=== PATIENT | male | born 1970 | race Caucasian/White ===

== ENCOUNTER 2018-01-20 14:59 | Observation (INO) | payer OTHER ==
[2018-01-20] MEDS ORDERED: metroNIDAZOLE-NS PMX 500 MG in SALINE 1 100ML.BAG IVPB STA (15:05)
--- NOTE | 2018-01-20 15:08 | ED ---
Abdominal Pain HPI - General Stated Complaint: Abd Pain Time Seen by Provider: 01/20/18 15:02 Source: patient, RN notes reviewed Mode of arrival: ambulatory Limitations: no limitations - History of Present Illness Initial Comments: This a 47-year-old male presents emergency from it from [place] as a transfer for acute appendicitis. Patient states pain started yesterday worsened today. Patient was seen today and had a CAT scan consistent with appendicitis. Patient was given Rocephin. Patient's lab work, MG was reviewed. Patient was evaluated by Dr. avina in emergency department. - Related Data Allergies Allergy/AdvReac Type Severity Reaction Status Date / Time No Known Allergies Allergy Verified 01/20/18 15:02 Review of Systems ROS Statement: Those systems with pertinent positive or pertinent negative responses have been documented in the HPI. ROS Other: All systems not noted in ROS Statement are negative. General Exam General appearance: alert, in no apparent distress Respiratory exam: Present: normal lung sounds bilaterally. Absent: respiratory distress, wheezes, rales, rhonchi, stridor Cardiovascular Exam: Present: regular rate, normal rhythm, normal heart sounds. Absent: systolic murmur, diastolic murmur, rubs, gallop, clicks GI/Abdominal exam: Present: soft, tenderness, normal bowel sounds. Absent: distended, guarding, rebound, rigid Back exam: Absent: CVA tenderness (R), CVA tenderness (L) Medical Decision Making - Medical Decision Making 47-year-old male presented with department for abdominal pain, appendicitis. Patient was transferred here from [facility]. Patient will be admitted to Dr. avina. Patient was given Rocephin at [facility] will be given Flagyl in addition here. Patient will be admitted for surgery. Disposition Clinical Impression: Acute appendicitis Disposition: ADMITTED IP TO THIS HOSP Condition: Stable Referrals: Ayan Iqbal MD [Primary Care Provider] - 1-2 days Time of Disposition: 15:07
[2018-01-20] MEDS: SODIUM CHLORIDE 0.9% 1,000 ML IV SCH (15:28)
--- NOTE | 2018-01-20 15:36 | P.GSHP ---
History of Present Illness H&P Date: 01/20/18 This is a 47-year-old male who presented to the emergency room after being transferred from [facility] with acute appendicitis. He states he had been having pain since last night which is generalized abdominal pain however this morning he woke up and had pain in his right lower quadrant. He has had loss of appetite and hasn't eaten since dinner last night. He denies any nausea vomiting denies any fevers or chills he's never had pain like this before in the past. Nothing makes it better movement makes it worse. He has no past surgical history his past medical history is hypertension and hypercholesterolemia. Past Medical History Past Medical History: Hyperlipidemia, Hypertension Additional Past Medical History / Comment(s): gout History of Any Multi-Drug Resistant Organisms: None Reported Past Surgical History: No Surgical Hx Reported Past Psychological History: No Psychological Hx Reported Smoking Status: Never smoker Past Alcohol Use History: None Reported Past Drug Use History: None Reported Medications and Allergies Home Medications Medication Instructions Recorded Confirmed Type Losartan Potassium 50 mg PO DAILY 01/20/18 01/20/18 History Allergies Allergy/AdvReac Type Severity Reaction Status Date / Time No Known Allergies Allergy Verified 01/20/18 15:22 Surgical - Exam Osteopathic Statement: *. No significant issues noted on an osteopathic structural exam other than those noted in the History and Physical/Consult. Vital Signs Temp Pulse Resp BP Pulse Ox 99.4 F 81 18 131/71 94 L 01/20/18 15:02 01/20/18 15:02 01/20/18 15:02 01/20/18 15:02 01/20/18 15:02 - General well developed, well nourished, no distress - Eyes PERRL - ENT normal mucosa - Neck no masses, trachea midline - Respiratory normal expansion, normal respiratory effort - Cardiovascular Rhythm: regular - Abdomen Soft nondistended tender to palpation in the right lower quadrant no rebound rigidity or guarding - Neurologic normal coordination, normal sensation - Musculoskeletal normal gait - Psychiatric oriented to time, oriented to person, oriented to place Results Patient had elevated white count on his outside labs. These were sent with him white count was 14 - Imaging CT scan - abdomen: report reviewed, image reviewed CT scan - pelvis: report reviewed, image reviewed (CT abdomen and pelvis was consistent with acute appendicitis. He also had lung nodules which were seen was discussed with the patient to follow-up with his primary care physician regarding these nodules. He stated he understood and agreed and would follow up with his primary care) Assessment and Plan Assessment: Acute appendicitis Plan: Patient received Rocephin prior to transfer. Will add IV Flagyl. Nothing by mouth. Plan for laparoscopic appendectomy possible open. This was discussed with the patient and his family risks benefits and alternatives including risks of bleeding infection damage to surrounding tissue need for further operation and conversion to open were all discussed the patient he stated he understood agreed and consented.
[2018-01-20] MEDS ORDERED: IV FLUID CONTINUATION 500 ML IV ONE (16:02)
[2018-01-20] MEDS ORDERED: HEPARIN SODIUM,PORCINE 5,000 UNIT/ML 1 ML VIAL SQ ONE (16:26)
[2018-01-20] MEDS ORDERED: DEXAMETHASONE SOD PHOS (MDV) 100 MG/10 ML VIAL ONE (16:30)
[2018-01-20] MEDS ORDERED: KETOROLAC 30 MG/ML 1 ML VIAL ONE (16:30)
[2018-01-20] MEDS ORDERED: PHENYLEPHRINE-0.9% NACL SYG 1 MG/10 ML SYRINGE ONE (16:30)
[2018-01-20] MEDS ORDERED: fentaNYL (PF) 50 MCG/ML 2 ML AMP ONE (16:30)
[2018-01-20] MEDS ORDERED: PROPOFOL 10 MG/ML 20 ML VIAL IV ONE (16:30)
[2018-01-20] MEDS ORDERED: NEOSTIGMINE 1 MG/ML 10 ML VIAL ONE (16:30)
[2018-01-20] MEDS ORDERED: GLYCOPYRROLATE 0.2 MG/ML 2 ML VIAL ONE (16:30)
[2018-01-20] MEDS ORDERED: ROCURONIUM BROMIDE 10 MG/ML 10 ML VIAL IV ONE (16:30)
[2018-01-20] MEDS ORDERED: ONDANSETRON 4 MG/2 ML VIAL ONE (16:30)
[2018-01-20] MEDS ORDERED: SUCCINYLCHOLINE CHLORIDE 100 MG/5 ML SYR IV ONE (16:30)
[2018-01-20] MEDS ORDERED: LIDOCAINE 1% INJ 10MG/ML (20 ML MDV) ONE (16:30)
[2018-01-20] MEDS ORDERED: MIDAZOLAM 2 MG/2 ML VIAL ONE (16:30)
[2018-01-20] MEDS ORDERED: BUPIVACAINE (PF) 0.25% 30 ML VIAL SQ ONE ×2 (17:04)
[2018-01-20] MEDS ORDERED: MORPHINE SULFATE 4MG/4ML SYRG IVP PRN (17:31)
[2018-01-20] MEDS ORDERED: NALOXONE 0.4 MG/ML 1 ML VIAL IV PRN (17:31)
[2018-01-20] MEDS ORDERED: LACTATED RINGERS 1,000 ML IV ONE (17:31)
--- NOTE | 2018-01-20 17:45 | P.OP ---
Date of Procedure: 01/20/18 Preoperative Diagnosis: Acute appendicitis Postoperative Diagnosis: same Procedure(s) Performed: Laparoscopic appendectomy Anesthesia: YANELIS Surgeon: Tani Dillon Condition: stable Disposition: PACU Indications for Procedure: This is a 47-year-old male who presented from an outside hospital with acute appendicitis. His clinical picture and CT scans consistent with acute appendicitis. He described the risks benefits and alternatives to laparoscopic appendectomy appendectomy including risks of bleeding infection damage surrounding tissue need further operation and converted open he stated he understood agreed and consented informed consent was obtained Operative Findings: Acute appendicitis Description of Procedure: Patient was brought operative suite remained in the supine position was prepped and draped in the usual sterile fashion timeout was performed correct patient correct procedure correct site was verified. A 2 cm incision was made in the left lower quadrant and using a 12 mm Visiport the abdomen was entered under direct visualization. The abdomen was insufflated no injuries were noted a 5 mm port was placed supraumbilical and a 5 mm port was placed under direct visualization suprapubic. The appendix was then identified the patient had been placed in Trendelenburg right side up. The appendix was dissected to the base of the cecum and a LigaSure device was used to take down the mesoappendix. A 45 mm purple load Endo JEFFY stapler was used to staple across the of appendix at the base of the cecum. The appendix was then placed in an Endo Catch bag and removed through the 12 mm port site. The staple line was inspected and hemostasis was noted the 12 mm port site was then closed with an 0 Vicryl in a [id number] fashion with 8 of a Fredy-Parvin suture passer. All ports removed under direct visualization and hemostasis was noted the abdomen was desufflated the skin was closed with 4-0 subcuticular Monocryl suture. Skin glue was applied patient tolerated procedure well no apparent complications
[2018-01-20] MEDS ORDERED: fentaNYL (PF) 50 MCG/ML 2 ML AMP IVP ONE (18:17)
[2018-01-20] MEDS: HYDROcodone/APAP 5-325MG 1 EACH TAB PO PRN (20:04)
[2018-01-20] MEDS: HEPARIN SODIUM,PORCINE 5,000 UNIT/ML 1 ML VIAL SQ SCH (23:20)
[2018-01-21] MEDS: SODIUM CHLORIDE 0.9% 1,000 ML IV SCH ×3 (03:39→14:15)
[2018-01-21] MEDS: HYDROcodone/APAP 5-325MG 1 EACH TAB PO PRN ×3 (04:05→14:26)
[2018-01-21 07:13] LABS: Basophils % (A) 0 %; Eosinophils % (A) 0 %; HCT 38.7 % (39.0-53.0); HGB 13.3 gm/dL (13.0-17.5); Lymphocytes # (A) 1.2 k/uL (1.0-4.8); Lymphocytes % (A) 9 %; MCHC 34.4 g/dL (31.0-37.0); MCV 87.3 fL (80.0-100.0); Mean Platelet Volume 6.6; Monocytes # (A) 0.6 k/uL (0-1.0); Monocytes % (A) 4 %; Neutrophils # (A) 11.2 k/uL (1.3-7.7); Neutrophils % (A) 85 %; Platelet Count 222 k/uL (150-450); RBC 4.44 m/uL (4.30-5.90); RDW 13.6 % (11.5-15.5); WBC 13.1 k/uL (3.8-10.6)
[2018-01-21 07:28] LABS: Anion Gap 12 mmol/L; Blood Urea Nitrogen 18 mg/dL (9-20); Calcium 8.7 mg/dL (8.4-10.2); Carbon Dioxide 25 mmol/L (22-30); Chloride 103 mmol/L (98-107); Glucose 118 mg/dL (74-99); Potassium 4.6 mmol/L (3.5-5.1); Sodium 140 mmol/L (137-145)
[2018-01-21] MEDS: HEPARIN SODIUM,PORCINE 5,000 UNIT/ML 1 ML VIAL SQ SCH (07:58)
[2018-01-21 08:47] VITALS: RESP 18
[2018-01-21] MEDS ORDERED: LOSARTAN 50 MG TAB PO SCH (09:00)
[2018-01-21 14:14] VITALS: BP 133/85; PULSE 75; TEMP 98.2
--- NOTE | 2018-01-21 14:27 | P.DS ---
Providers Date of admission: 01/20/18 15:08 Attending physician: Tani Dillon DO Primary care physician: Ayan Iqbal Hospital Course: Is a 47-year-old gentleman who was transferred from [place] on 01/20/2018 for evaluation for appendicitis. He had CT and clinical findings consistent with acute appendicitis is taken to the operating room on 01/20/2018 for a laparoscopic appendectomy this was performed without complication. Overnight patient did well he states that today his pain is feeling much better. He is tolerating a diet. Afebrile. Clinically improved. He was stable for discharge on 01/21/2018 with instructions to follow-up with his primary care physician in [place]. I informed him that should he have pain is getting worse instead of better fevers or chills or any other concerns to call my office or report to the emergency room. I informed the patient not to lift anything over 15 pounds for 3-4 weeks. He stated he understood agreed is discharged home in stable condition on 01/21/2018 Patient Condition at Discharge: Stable Plan - Discharge Summary Discharge Rx Participant: No New Discharge Prescriptions: No Action Losartan Potassium 50 mg PO DAILY Discharge Medication List Losartan Potassium 50 mg PO DAILY 01/20/18 [History] Follow up Appointment(s)/Referral(s): Ayan Iqbal MD [Primary Care Provider] - 1-2 days Tani Dillon DO [Doctor of Osteopathic Medicine] - 1 Week Activity/Diet/Wound Care/Special Instructions: Patient may shower and pat dry do not submerge for 3 weeks
[2018-01-21] MEDS ORDERED: HYDROmorphone 2 MG TAB PO PRN (14:52)
== END 2018-01-21 15:00 | disposition home or self-care (01) ==
LOC: EC 14:59 → 5MS5E 15:08 → INTOOBSV 15:08 → UNDODISOB 01-21 15:00
PROVIDERS: ADMIT Student in an Organized Health Care Education/Training Program; ATTEND Student in an Organized Health Care Education/Training Program
DX: K35.80 Unspecified acute appendicitis (principal); E78.5 Hyperlipidemia, unspecified; I10 Essential (primary) hypertension; M10.9 Gout, unspecified; G47.33 Obstructive sleep apnea (adult) (pediatric); Z99.89 Dependence on other enabling machines and devices; Z79.899 Other long term (current) drug therapy; Z98.890 Other specified postprocedural states
CPT/HCPCS: 44970; 96365; 99284; 94660 ×2; 88304; 80048; 85025; G0378 ×2; J2250; J1644 ×2; J2710; J2405; J2001; J3010; J1885; J1100; J2370; J0330; J2704

== ENCOUNTER → 2018-02-04 | Outpatient (CLI) | payer OTHER ==
--- NOTE | 2018-02-04 13:48 | PE ---
EXAMINATION TYPE: PET CT fusion skull to thigh DATE OF EXAM: 02/04/2018 COMPARISON: Outside CT abdomen and pelvis study January 20, 2018. HISTORY: Pulmonary nodules with adjacent adenopathy per order. TECHNIQUE: Following the intravenous administration of 14.23 mCi of F-18 FDG, whole body images are performed from the skull base to the midthigh. Images are reviewed on the computer in the coronal, a xial, and sagittal planes. Reconstructed rotating images are created on independent workstation and reviewed on the computer. A noncontrast CT is performed in conjunction with the PET scan. SCAN: Initial Scan FINDINGS: SKULL BASE AND NECK: No suspicious hypermetabolic uptake is present. CHEST, MEDIASTINUM, AND HILAR REGION: There is 5 x 4 mm nodule near level of lingula axial image 98 w ithout hypermetabolic uptake. There is 8 x 5 mm left lower lobe nodule posteriorly axial image 107 wi thout hypermetabolic uptake. There is 2 mm nodule left upper lobe axial image 73. There are enlarged hypermetabolic left hilar lymph nodes. For reference max SUV is 3.29 on axial imag e 95, size of lymph node is roughly 1.8 x 1.1 cm but difficult to accurately measure on noncontrast C T with adjacent pulmonary arterial branch. There are prominent but subcentimeter ametabolic additiona l scattered thoracic lymph nodes. ABDOMEN AND PELVIS: There is asymmetric hypermetabolic uptake right lateral wall of rectum axial imag e 245 slightly more eccentric thickening seen on comparison outside CT, max SUV is 5.07. Neoplasm at this level cannot be excluded. Further investigation with direct visualization or colonoscopy advised . OSSEOUS STRUCTURES: No suspicious hypermetabolic uptake is seen. OTHER CT: Coronary artery calcification is present which is noted marker for coronary artery disease. Mild cardiomegaly is noted. Small degree of bilateral gynecomastia is noted. Liver is diffusely low dense consistent with fatty infiltration. There is 4 mm calculus in left kidney mid pole level axial image 169 redemonstrated. Central zone calcifications are seen in prostate gland upper limits of normal in size. There is moderate to large sized fat-containing right inguinal hernia. There is linear scarring left anterior abdominal wall axial image 209 likely from prior laparoscopic surgery. IMPRESSION: Scattered left-sided lung nodules do not show suspicious hypermetabolic uptake. There is mild abnormal hypermetabolic uptake in left hilar lymph nodes. Consider bronchoscopy to further evalu ate. More suspicious uptake noted right wall of rectum. Follow-up colonoscopy advised.
== END ==
LOC: RADPETMAIN 07:12
PROVIDERS: ATTEND Family Medicine
DX: R59.1 Generalized enlarged lymph nodes (principal); R91.1 Solitary pulmonary nodule
CPT/HCPCS: 78815; A9552

== ENCOUNTER 2018-02-13 11:46 | Day surgery (SDC) | payer OTHER ==
[2018-02-10 11:46] VITALS: BMI 30.5
[2018-02-13] MEDS ORDERED: LIDOCAINE 1% 20 ML VIAL (10MG/ML) FOR IV START INTRADERMA ONE (12:21)
[2018-02-13 12:32] VITALS: RESP 16; TEMP 97.9
[2018-02-13] MEDS ORDERED: LACTATED RINGERS 1,000 ML IV ONE (12:36)
[2018-02-13] MEDS ORDERED: LIDOCAINE 1% INJ 10MG/ML (20 ML MDV) ONE (13:58)
[2018-02-13] MEDS ORDERED: PROPOFOL 10 MG/ML 20 ML VIAL IV ONE (13:58)
--- NOTE | 2018-02-13 14:16 | P.GSHP ---
History of Present Illness H&P Date: 02/13/18 Chief Complaint: Screening colonoscopy This a 48-year-old male referred from Dr. Regan. Patient rents today for screening colonoscopy. He denies a significant GI complaints. Past Medical History Past Medical History: Cancer, Deep Vein Thrombosis (DVT), GERD/Reflux, Hyperlipidemia, Hypertension, Sleep Apnea/CPAP/BIPAP Additional Past Medical History / Comment(s): gout,basal cell skin CA to forhead , kidney stones, C PAP -" DVT -IN LEG AFTER CHAIN SAW INJURY TO LEG" History of Any Multi-Drug Resistant Organisms: None Reported Past Surgical History: Appendectomy Additional Past Surgical History / Comment(s): nasal surgery, skin cancer surgery Past Anesthesia/Blood Transfusion Reactions: No Reported Reaction Smoking Status: Former smoker - Past Family History Brother(s) Family Medical History: Hyperlipidemia Mother Family Medical History: No Reported History Medications and Allergies Home Medications Medication Instructions Recorded Confirmed Type Losartan Potassium 50 mg PO DAILY 01/20/18 02/13/18 History Allergies Allergy/AdvReac Type Severity Reaction Status Date / Time No Known Allergies Allergy Verified 02/10/18 11:29 Surgical - Exam Vital Signs Temp Pulse Resp BP Pulse Ox 97.9 F 73 16 117/71 98 02/13/18 12:27 02/13/18 12:27 02/13/18 12:27 02/13/18 12:27 02/13/18 12:27 - General well developed, no distress - Eyes PERRL - ENT normal pinna - Neck no masses - Respiratory normal expansion - Cardiovascular Rhythm: regular - Abdomen Abdomen: soft, non tender Assessment and Plan Assessment: We'll perform screening colonoscopy.
--- NOTE | 2018-02-13 14:29 | P.OP ---
Date of Procedure: 02/13/18 Preoperative Diagnosis: Screening colonoscopy Postoperative Diagnosis: Inflammatory changes rectum pathology pending Procedure(s) Performed: Colonoscopy Anesthesia: MAC Surgeon: Guille Wu Pathology: other (Rectal biopsy 2, left colon) Condition: stable Disposition: PACU Description of Procedure: Patient's placed on the endoscopy table lateral position. He received IV sedation. Digital rectal exam was performed which revealed no ebonized. The flexible colonoscope was then placed patient anus and passed throughout the entire colon. The ileocecal valve was visualized. The cecum, ascending and transverse colon appeared normal. In the descending colon there was a area of inflammation which was biopsied. The scope was withdrawn remainder the descending colon appeared normal. The sigmoid colon appeared normal. In the rectum there was evidence of some inflammatory changes with questionable polyps. This area was biopsied. A proximal and distal rectum was biopsied. Scope was withdrawn for patient.
[2018-02-13 15:05] VITALS: BP 128/86; PULSE 63
== END 2018-02-13 15:21 | disposition home or self-care (01) ==
LOC: ORWHC2ENDO 11:46
PROVIDERS: ATTEND Surgery
DX: Z12.11 Encounter for screening for malignant neoplasm of colon (principal); K62.89 Other specified diseases of anus and rectum; K52.9 Noninfective gastroenteritis and colitis, unspecified; K21.9 Gastro-esophageal reflux disease without esophagitis; E78.5 Hyperlipidemia, unspecified; I10 Essential (primary) hypertension; Z86.718 Personal history of other venous thrombosis and embolism; G47.33 Obstructive sleep apnea (adult) (pediatric); Z99.89 Dependence on other enabling machines and devices; Z85.828 Personal history of other malignant neoplasm of skin; Z87.891 Personal history of nicotine dependence; Z87.442 Personal history of urinary calculi; M10.9 Gout, unspecified; Z79.899 Other long term (current) drug therapy
CPT/HCPCS: 88305; 45380; J2001; J2704